=== PATIENT | female | born 1985 | race Caucasian/White ===

== ENCOUNTER 2023-05-08 18:41 | Emergency (ER) | payer OTHER ==
[~2023-05-08] VITALS: Ht 149.9 cm; Wt 59.0 kg
[2023-05-08] MEDS ORDERED: NS IV 1000 ML 1,000 ML IV STA (19:07)
[2023-05-08] MEDS ORDERED: LORazepam INJ 2 MG/ML (ATIVAN) VIAL IVP STA (19:07)
--- NOTE | 2023-05-08 19:07 | ED EENT ---
History of Present Illness General Chief Complaint: Oral/Throat Problems Stated Complaint: SORE THROAT|TROUBLE BREATHING Source: patient Exam Limitations: no limitations History of Present Illness Date Seen by Provider: May 08, 2023 Time Seen by Provider: 18:43 Initial Comments 37-year-old female with no pertinent past medical history coming in due to fever and sore throat as well as congestion. Started yesterday, mild cough, no vomiting, diarrhea, dysuria, abdominal pain, chest pain. Went to urgent care yesterday and they prescribed her prednisone. [place] a little bit worse today and was referred to the ER. She is swallowing without difficulty, feels mildly short of breath, but she says it is mostly due to the anxiety due to the pain. Last had ibuprofen more than 9 hours ago. She has had a tubal ligation and had a period within the past month. Allergies and Home Medications Allergies Coded Allergies: No Known Drug Allergies (Unverified , 05/08/23) Patient Home Medication List Home Medication List Reviewed: Yes Cefdinir (Cefdinir) 300 Mg Capsule, 300 MG PO BID Prescribed by: BLAEK LOWE on 05/08/231954 Ibuprofen (Ibuprofen) 600 Mg Tablet, 600 MG PO Q6H PRN for PAIN-MILD Prescribed by: BLAKE LOWE on 05/08/231954 Review of Systems Review of Systems Constitutional: fever Eyes: Other (clear drainage) Ears: No Symptoms Reported Nose: other (congestion) Mouth: no symptoms reported Throat: see HPI Respiratory: see HPI Cardiovascular: no symptoms reported Gastrointestinal: no symptoms reported Musculoskeletal: no symptoms reported Past [place]-M[place]-Yqargp Hx Patient Social History Tobacco Use?: No Use of E-Cig and/or Vaping dev: Yes E-Cig or Vaping type used: Nicotine Substance use?: No Alcohol Use?: Yes Alcohol Frequency: Once in a while Past Medical History Surgeries: Yes Tubal Ligation Physical Exam Vital Signs Vital Signs - First Documented 05/08/23 18:49 Temp 38.9 Pulse 98 Resp 20 B/P (MAP) 138/92 (107) Pulse Ox 98 O2 Delivery Room Air Height, Weight, BMI Height: '" Weight: lbs. oz. kg; BMI Method: General Appearance: WD/WN, other (tearful) Eyes: bilateral eye normal inspection, bilateral eye PERRL, bilateral eye EOMI Ears: bilateral ear auricle normal, bilateral ear canal normal, bilateral ear TM normal Nose: other (congestion) Mouth/Throat: normal mouth inspection; No pharynx swelling; pharynx tenderness; No tonsillar exudate, No tonsillar swelling, No trismus, No uvula swelling, No voice changes; other (Pharyngeal erythema) Neck: non-tender, full range of motion, supple, normal inspection Cardiovascular: regular rate, rhythm, no edema, no murmur Respiratory: chest non-tender, lungs clear, normal breath sounds, no respiratory distress, no accessory muscle use Gastrointestinal: normal bowel sounds, non tender, soft; No distended, No guarding, No rebound Neurologic/Psychiatric: no motor/sensory deficits, alert, normal mood/affect Skin: normal color, warm/dry Progress/Results/Core Measures Results/Orders Lab Results Laboratory Tests Test 05/08/23 18:55 05/08/23 19:10 Range/Units Group A Streptococcus Screen NEGATIVE NEGATIVE White Blood Count 5.4 4.3-11.0 10^3/uL Red Blood Count 3.94 3.80-5.11 10^6/uL Hemoglobin 11.7 11.5-16.0 g/dL Hematocrit 35 35-52 % Mean Corpuscular Volume 90 80-99 fL Mean Corpuscular Hemoglobin 30 25-34 pg Mean Corpuscular Hemoglobin Concent 33 32-36 g/dL Red Cell Distribution Width 13.0 10.0-14.5 % Platelet Count 301 130-400 10^3/uL Mean Platelet Volume 9.3 9.0-12.2 fL Immature Granulocyte % (Auto) 0 % Neutrophils (%) (Auto) 78 H 42-75 % Lymphocytes (%) (Auto) 14 12-44 % Monocytes (%) (Auto) 6 0-12 % Eosinophils (%) (Auto) 1 0-10 % Basophils (%) (Auto) 1 0-10 % Neutrophils # (Auto) 4.2 1.8-7.8 10^3/uL Lymphocytes # (Auto) 0.8 L 1.0-4.0 10^3/uL Monocytes # (Auto) 0.3 0.0-1.0 10^3/uL Eosinophils # (Auto) 0.0 0.0-0.3 10^3/uL Basophils # (Auto) 0.0 0.0-0.1 10^3/uL Immature Granulocyte # (Auto) 0.0 0.0-0.1 10^3/uL Sodium Level 139 135-145 MMOL/L Potassium Level 3.9 3.6-5.0 MMOL/L Chloride Level 107 98-107 MMOL/L Carbon Dioxide Level 23 21-32 MMOL/L Anion Gap 9 5-14 MMOL/L Blood Urea Nitrogen 7 7-18 MG/DL Creatinine 0.85 0.60-1.30 MG/DL Estimat Glomerular Filtration Rate 91 BUN/Creatinine Ratio 8 Glucose Level 84 70-105 MG/DL Calcium Level 8.7 8.5-10.1 MG/DL Corrected Calcium 8.8 8.5-10.1 MG/DL Total Bilirubin 0.3 0.1-1.0 MG/DL Aspartate Amino Transf (AST/SGOT) 22 5-34 U/L Alanine Aminotransferase (ALT/SGPT) 20 0-55 U/L Alkaline Phosphatase 27 L 40-136 U/L C-Reactive Protein High Sensitivity 0.11 0.00-0.50 MG/DL Total Protein 7.0 6.4-8.2 GM/DL Albumin 3.9 3.2-4.5 GM/DL My Orders Orders - BLAKE LOWE MD Rapid Strep A Screen (05/08/23 18:59) Cbc With Automated Diff (05/08/23 19:03) Comprehensive Metabolic Panel (05/08/23 19:03) Hs C Reactive Protein (05/08/23 19:03) Ed Iv/Invasive Line Start (05/08/23 19:03) Chest 1 View, Ap/Pa Only (05/08/23 19:03) Ketorolac Injection (Toradol Injection) (05/08/23 19:15) Ns Iv 1000 Ml (Sodium Chloride 0.9%) (05/08/23 19:07) Acetaminophen Tablet (Tylenol Tablet) (05/08/23 19:15) Clindamycin Capsule (Cleocin Capsule) (05/08/23 19:15) Lorazepam Injection (Ativan Injection) (05/08/23 19:07) Throat Culture Strep A Confirm (05/08/23 18:55) Medications Given in ED Current Medications Medications Dose Ordered Sig/Alfonso Route Start Time Stop Time Status Last Admin Dose Admin Acetaminophen 1,000 mg ONCE ONCE PO 05/08/23 19:15 05/08/23 19:16 DC 05/08/23 19:18 1,000 MG Clindamycin HCl 300 mg ONCE ONCE PO 05/08/23 19:15 05/08/23 19:16 DC 05/08/23 19:18 300 MG Ketorolac Tromethamine 15 mg ONCE ONCE IVP 05/08/23 19:15 05/08/23 19:16 DC 05/08/23 19:17 15 MG Vital Signs/I&O 05/08/23 18:49 Temp 38.9 Pulse 98 Resp 20 B/P (MAP) 138/92 (107) Pulse Ox 98 O2 Delivery Room Air Progress Progress Note : Progress Note 37yoF with above history coming in due to sore throat and fever. ABCs were intact and vitals were toxic, although she does have a fever and is very mildly tachycardic. An IV was placed and she was given a bolus of IV fluids, Toradol for pain. She does have some throat pain and redness, we will give her clindamycin given the swelling she is stating she feels, although clinically I do not see. She has no red flags such as no trismus, no voice changes, tolerating secretions, and once again nontoxic-appearing. Chest x-ray my interpretation with concerns for right lower lobe developing infiltrate which the radiologist agrees. We will start her on an appropriate antibiotic as an outpatient for pneumonia. Labs otherwise with normal white blood cell count, normal CRP, normal creatinine, and overall I have very low suspicion for a deep space infection in her neck. I believe the patient is stable for discharge with outpatient follow-up. She was sent home with strict return precautions Diagnostic Imaging Diagonstic Imaging: Xray (chest) Comments [facility] [place], [place] NAME: L[facility] REC#: [id number] PT STATUS: REG ER : 1985 PHYSICIAN: BLAKE LOWE MD ADMIT DATE: 05/08/23/ER Draft Date of Exam:05/08/23 CHEST 1 VIEW, AP/PA ONLY INDICATION: Shortness of breath and fever. COMPARISONS: None FINDINGS: Single chest shows normal heart, pleura and diaphragms. There is a right lower lobe consolidation. There is no effusion or pneumothorax. Soft tissues and potential thorax unremarkable. IMPRESSION: A developing right lower lobe consolidation. Short-term followup to resolution with clinical correlation recommended. Dictated on workstation # [id number] Dict: 05/08/231925 Trans: 05/08/231939 CV [id number] Interpreted by: BERTIN LOUIE MD Electronically signed by: Departure Impression Primary Impression: Pneumonia Qualified Codes: J18.9 - Pneumonia, unspecified organism Disposition: HOME, SELF-CARE Condition: Stable Departure-Patient Inst. Decision time for Depature: 20:00 Referrals: [facility] [employer] (PCP/Family) Primary Care Physician Patient Instructions: Pneumonia, Adult (DC) Add. Discharge Instructions: Think pneumonia in your right lower part of your lung which is likely the reason why you are feeling mildly short of breath. Take ibuprofen and or Tylenol as needed for fever or pain. Continue the prescription you were sent, we will add an antibiotic you will also take starting tomorrow morning. The strep test was negative, theoretically if he had any bacterial infection in your throat, the antibiotic would help with that as well. Scripts Fluconazole (Diflucan) 150 Mg Tablet 150 MG PO q72 hours, #3 TAB Prov: BLAKE LOWE MD 05/08/23 Ibuprofen (Ibuprofen) 600 Mg Tablet 600 MG PO Q6H PRN for PAIN-MILD for 7 Days, #28 TAB Prov: BLAKE LOWE MD 05/08/23 Cefdinir (Cefdinir) 300 Mg Capsule 300 MG PO BID for 7 Days, #14 CAP Prov: BLAKE LOWE MD 05/08/23 Work/School Note: Work Release Form Date Seen in the Emergency Department: May 08, 2023 Return to Work: May 10, 2023 Restrictions: Return-No Fever (24hrs) BLAKE LOWE MD May 08, 2023 19:07
[2023-05-08] MEDS ORDERED: KETOROLAC 30 MG/ML VIAL IVP ONE (19:15)
[2023-05-08] MEDS ORDERED: ACETAMINOPHEN 500 MG TAB (TYLENOL) PO ONE (19:15)
[2023-05-08] MEDS ORDERED: CLINDAMYCIN 150 MG (CLEOCIN) CAP PO ONE (19:15)
[2023-05-08 19:17] LABS: BASOPHILS % (AUTO) 1 % (0-10); EOSINOPHILS % (AUTO) 1 % (0-10); HEMATOCRIT 35 % (35-52); HEMOGLOBIN 11.7 g/dL (11.5-16.0); LYMPHOCYTES # (AUTO) 0.8 10^3/uL (1.0-4.0); LYMPHOCYTES % (AUTO) 14 % (12-44); MEAN CORPUSCULAR HEMOGLOBIN 30 pg (25-34); MEAN CORPUSCULAR HGB CONC 33 g/dL (32-36); MEAN CORPUSCULAR VOLUME 90 fL (80-99); MEAN PLATELET VOLUME 9.3 fL (9.0-12.2); MONOCYTES # (AUTO) 0.3 10^3/uL (0.0-1.0); MONOCYTES % (AUTO) 6 % (0-12); NEUTROPHILS # (AUTO) 4.2 10^3/uL (1.8-7.8); NEUTROPHILS % (AUTO) 78 % (42-75); PLATELET COUNT 301 10^3/uL (130-400); WHITE BLOOD COUNT 5.4 10^3/uL (4.3-11.0)
[2023-05-08 19:27] LABS: ALBUMIN 3.9 GM/DL (3.2-4.5); POTASSIUM 3.9 MMOL/L (3.6-5.0)
[2023-05-08 19:28] LABS: CALCIUM 8.7 MG/DL (8.5-10.1)
[2023-05-08 19:31] LABS: BILIRUBIN,TOTAL 0.3 MG/DL (0.1-1.0)
[2023-05-08 19:33] LABS: CREATININE SERUM 0.85 MG/DL (0.60-1.30)
--- NOTE | 2023-05-08 19:41 | Diagnostic Imaging Report ---
INDICATION: Shortness of breath and fever. COMPARISONS: None FINDINGS: Single chest shows normal heart, pleura and diaphragms. There is a right lower lobe consolidation. There is no effusion or pneumothorax. Soft tissues and potential thorax unremarkable. IMPRESSION: A developing right lower lobe consolidation. Short-term followup to resolution with clinical correlation recommended. Dictated by: Dictated on workstation # [id number]
[2023-05-08] MEDS ORDERED: IBUP-1773 PO (19:55)
[2023-05-08] MEDS ORDERED: CEFD300C3 PO (19:55)
[2023-05-08] MEDS ORDERED: FLUC150T PO (20:02)
[2023-05-08 20:14] VITALS: BP 103/69
== END 2023-05-08 20:18 | disposition home or self-care (01) ==
LOC: ER 18:44
DX: J18.9 Pneumonia, unspecified organism (principal); J02.9 Acute pharyngitis, unspecified; F17.290 Nicotine dependence, other tobacco product, uncomplicated
CPT/HCPCS: 36415; 71045; 80053; 85025; 86141; 87430